=== PATIENT | male | born 1970 | race Caucasian/White ===

== ENCOUNTER 2018-07-29 06:08 | Day surgery (SDC) | payer BC, SELFPAY ==
[2018-07-29 06:22] VITALS: BP 121/74; PULSE 62; RESP 16; TEMP 36.6; O2SAT 94
[2018-07-29] MEDS: Lactated Ringers 1,000 ML 30 ML IV ×2 (07:02→08:28)
--- NOTE | 2018-07-29 07:36 | HPE_ITS ---
Date of service: 07/29/18 Time of Service: 07:33 Assessment and Plan (1) Lipoma of arm: Current visit: Yes Status: Acute Problem details: Plan for removal of lipoma of the left arm under MAC. Reviewed the procedure with Mr. Gaytan, and discussed the risks of the procedure with Mr. Gaytan. All his questions were answered to his satisfaction. History of Present Illness Chief Complaint: Lipoma of the left arm Narrative: 48 y/o gentleman referred for lipoma of the left arm. This has been present for years, and increasing in size. It starting to interfere with ADL's. He would like this removed Review of Systems Constitutional Denies body ache(s), Denies chills, Denies fever(s), Denies headache(s), Denies weakness and Denies weight loss Eyes Patient Denies loss of vision ENT Denies headache(s), Denies throat swelling and Denies tongue swelling Cardiovascular Denies chest pain, Denies chest pain at rest, Denies chest pain with activity, Denies diaphoresis, Denies syncope, Denies irregular heart rhythm, Denies palpitations and Denies dyspnea on exertion Respiratory Denies chest congestion, Denies cough, Denies dyspnea on exertion and Denies wheezing Musculoskeletal Denies back pain, Denies myalgias, Denies arthralgias, Denies joint swelling and Denies limited range of motion Integumentary/Breasts Reports lesions (lipoma left arm) Neurologic Denies behavioral changes, Denies syncope, Denies headache(s), Denies lack of coordination, Denies loss of vision, Denies convulsions and Denies weakness Psychiatric Denies abnormal sleep pattern, Denies behavioral changes, Denies difficulty concentrating and Denies mood swings Endocrine Denies palpitations Hematologic/Lymphatic Denies easy bleeding and Denies easy bruising Allergic/Immunologic Denies GI upset with certain foods, Denies throat swelling, Denies tongue swelling and Denies wheezing [facility]LY [facility] Medical History MAXI (obstructive sleep apnea) (Chronic) Social History Smoking/Tobacco Use Status: Never Surgical History Biopsy, Soft Tissue (09/25/17) Excision, Lipoma (09/25/17) Repair of umbilical hernia Rotator Cuff Repair Meds Home Medications Medication Instructions Recorded Confirmed Type ibuprofen [Advil] 200 - 800 mg PO PRN PRN 12/06/15 07/29/18 History Allergies Allergy/AdvReac Type Severity Reaction Status Date / Time No Known Allergies Allergy Unverified 07/29/18 06:20 Exam Const General: cooperative, comfortable and no acute distress Nutritional Appearance: well nourished Orientation: alert and oriented x3 Chest Chest: normal inspection of the chest Resp Effort & Inspection: normal respiratory effort, able to speak in complete sentences, no cough and not labored Cardio Rate: regular rate Rhythm: regular rhythm Skin Lesions: lesion noted (left arm) Rashes: no rashes Hair: normal Psych Appearance: grossly normal and well kempt Mental Status: mental status grossly normal Mood: congruent mood Affect: normal affect Attitude: cooperative Insight: insight good Judgment: judgment good
--- NOTE | 2018-07-29 08:19 | SOFT_PTH ---
PATIENT: Carlos Gaytan LOC: [facility] U#:[id number] AGE/SX: 48/M ROOM: RE07/29/[address]: dEuardo Virgen DO : 1970 BED: DIS: 07/29/2018 SPEC #: [id number] RECD: 07/29/18 12:09 STATUS: EVA LEVY #: [id number] JAMIA: 07/29/18 08:[address]: Eduardo Virgen DEPT: Surgical Specimen RECD BY: Lyndsay Persadu ENTERED: 07/29/18 12:11 SP TYPE: SOFT OTHR DR: Juliette Licona Tissues: 1 - SOFT TISSUE [facility] Procedures: GROSS AND MICRO LEVEL 3 Comments: [id number]
[2018-07-29] MEDS: Lidocaine 1% Pres-Free 5 ML VIAL 15 ML (08:27)
[2018-07-29] MEDS: Lidocaine 1% Pres-Free 5 ML VIAL (08:27)
[2018-07-29 08:47] VITALS: BP 157/82; PULSE 62; RESP 15; TEMP 36.6; O2SAT 95
[2018-07-29 08:52] VITALS: BP 164/87; PULSE 59; RESP 14; TEMP 36.6; O2SAT 96
[2018-07-29 08:57] VITALS: BP 152/79; PULSE 60; RESP 13; TEMP 36.6; O2SAT 97
[2018-07-29 09:12] VITALS: BP 132/88; PULSE 53; RESP 14; TEMP 36.3; O2SAT 97
--- NOTE | 2018-07-29 09:18 | PDOC.DSDIS_ITS ---
Discharge Plan Discharge Details Reason For Visit: LIPOMA (L) ARM Attending Provider: Eduardo Virgen Primary Care Provider: Juliette Licona Disposition Patient Disposition: HOME Condition: Good Home Meds and New Rx's Prescriptions: New acetaminophen [Tylenol] 325 mg Tablet 650 mg PO Q4H PRN PRNQty: 30 RF: 0 Continue ibuprofen [Advil] 200 MG tablet 200 - 800 mg PO PRN PRNRF: 0 Discharge Instructions Instructions: Care For Your Absorbable Stitches (DC), Lipoma (GEN) Additional Instructions: Dr. Eduardo Virgen Post-Operative Discharge Instructions 1. Because there will be medication in your system for the next 24 hours, you may feel a little sleepy. Your coordination will be affected. Therefore: * Do not drive or operate dangerous equipment for 24 hours. * Do not drink alcohol beverages for 24 hours (not even beer). * Plan to go home and rest for the day. Restrictions: * Do not lift over 20lbs for 1 weeks with the left arm. * No baths, you can shower. Let warm soapy water run over wound, then pat wound dry. Activity: * The day of surgery spend most of the day resting in a comfortable bed or recliner. 2-3 times during the day get up and walk around the house. * The day after surgery, or after your discharge, walk at least 3 times a day and spend increasing amounts of time walking and sitting up. If you are tired rest, but keep moving as able. Diet: * Resume home diet as tolerated. * Start with a light diet, your appetite will improve with time. * Drink at least 4-6 glasses of water per day to keep hydrated. Wound Care: * Wound is covered with glue, you can shower in 24 hours, glue will wear off in time * You may cover the wound with a dry sterile dressing to keep clothing from rubbing against the wound. Call for appointment . Continue all your regular medications unless directed otherwise. Call the office or the Hospital Insulation Foreman , If you have: * Pain not controlled with pain medication. * Nausea and vomiting. * Temperature greater than 101 degrees Fahrenheit. * Drainage from your wound that soaks through your dressing. *No more than 4000 milligrams of Tylenol in 24 hours. Narcotic pain medication can be constipating, if you have not had a bowel movement within 3 days use a laxative, I recommend Milk of Magnesia (MOM) 1oz. every 6 hrs until you have a bowel movement. I understand the above instructions and have no questions. _ Signature of Patient or Responsible Adult Escort Date/Time _ Name of Responsible Adult Escort _ Signature of Nurse Date/Time Revised 03/19/11 Referrals: Eduardo Virgen DO [ [facility] STAFF PHYSICIAN] - 08/11/18 9:15 am (Follow up after excision of lipoma of the left arm) Print Language: Italian Activity:: Activity as Tolerated Remove Dressings/Wound Care:: 24 hours Shower/Bathe:: Cover Diet:: Normal Diet Discharge Orders Discharge Orders: Discharge Order (Routine); Ordered 07/29/18 Ordered By: Eduardo Virgen Discharge Data Discharge Date/Time-TO BE ENTERED AT DEPARTURE: 07/29/18 09:15 DS: Diagnosis Discharge Diagnosis (1) Lipoma of arm: Status: Acute Problem details: Plan for removal of lipoma of the left arm under MAC. Reviewed the procedure with Mr. Gaytan, and discussed the risks of the procedure with Christoph Lucila. All his questions were answered to his satisfaction.
[2018-07-29] MEDS: Lactated Ringers 1,000 ML 150 ML IV (09:23)
--- NOTE | 2018-07-29 09:25 | W.PM.OP ---
Date of service: 07/29/18 Operative Note Date of procedure: 07/29/18 Pre-op diagnosis: Lipoma left arm Post-op diagnosis: same Procedure: Excision of lipoma of the left arm Surgeon: Eduardo Virgen Anesthesia: other (General anesthesia via LMA by Glenn Patricia CRNA ASA 3 Mallampati class II) Estimated blood loss (mL): 5.0 Pathology: none sent (Lipoma of the left arm) Complications: None Patient was transported to: PACU Patient's condition: stable Indications: 48-year-old male with lipoma in the left arm. This is been present for many years, and has been increasing in size. It is now starting to interfere with his activities of daily living. He is asked that this be removed. The risks and benefits of the procedure have been discussed with him. All his questions been answered to his satisfaction. Findings: Lipoma of the left arm Procedure Description: Patient was brought to the preanesthesia staging area, identification confirmed, consent signed, and site marking placed. He was then brought to the operating room and positioned in the right lateral decubitus consent signed. An appropriate timeout was taken reviewing the patient's identification, allergies, medications, and procedures. Sedation was titrated for effect by the SOLID GLASS ROD DOWEL MACHINE OPERATOR, the patient could not protect his airway, and was converted to general via LMA. Once the patient was adequately sedated, local was infiltrated over the center of the left arm lesion. An elliptical incision measuring 4 cm in transverse and 1 cm longitudinal was made over the lesion. This was carried down to the subcutaneous tissue, to the capsule of the lipoma. Blunt dissection was then used to circumferentially dissect out the lipoma. Once it was further circumferentially freed up, it was removed and passed off for pathology. The wound was then copiously irrigated. Hemostasis was obtained by cautery. The wound was then closed in layers. The subcutaneous layer was approximated using 3-0 Vicryl sutures in inverted fashion. Skin was closed using a running suture of 4-0 Vicryl. Skin glue was applied over the wound. A dry sterile dressing was then applied over this. There were no complications during the case. The patient tolerated procedure well. He was brought to the postanesthesia care unit in good condition, all counts reported as correct ?2.
[2018-07-29 10:05] VITALS: BP 109/74; PULSE 61; RESP 16; TEMP 36.5; O2SAT 94
== END 2018-07-29 10:25 | disposition home or self-care (01) ==
PROVIDERS: Visit Provider Surgery
PROC: (CPT 11404; principal; 2018-07-29 07:30)
DX: D17.1 Benign lipomatous neoplasm of skin and subcutaneous tissue of trunk (principal)
CPT/HCPCS: 11404; NC; 88304; J2250; J3010

== ENCOUNTER 2018-10-06 08:27 | Outpatient (CLI) | payer BC, SELFPAY ==
--- NOTE | 2018-10-06 08:30 | SATEXT_ITS ---
Assessment: Mr. Gaytan presents for nutritional counseling for weight management nutrition therapy. He reports that he has been steadily gaining weight over the past couple of years. He has a shoulder injury and had to stop lifting weights and thus lost all motivation to other physical activity and eat well etc. He rarely eats breakfast, he has a sandwich and chips for lunch, he has a typical dinner, he snacks on chips. He drinks regular soda and Gatorade. He also drinks regular lemonade. He is 67 [address]. He states he would like to lose 50 lbs. He verbalizes that he is ready to make changes. Nutritional Diagnosis: Class 2 obesity related to excess energy intake and physical inactivity as evidenced by BMI of 37.5 kg/m2. Intervention: We discussed action planning for his big goal of losing weight. We reviewed the DASH eating plan to outline how much and what foods Mr. Gaytan needs to eat during the day. To that end, his first action plan is to eat 11 fruits and vegetables per day. We discussed not focusing on not eating chips and other junk food, but focusing on what he needs to eat. His second action plan is to eliminated sugary drinks completely. Mr. Gaytan states he will drink water. He does admit, he would like to but a non-caloric flavor pack in his water occasionally, which I said is acceptable. Monitoring and Evaluation: 1. Mr. Gaytan will return in 2 weeks for follow up. Will monitor his progress on his action plans. 2. Will evaluate his nutrition care plan based on his progress with action plans above. Will adjust as needed. Thank you for the referral.
== END 2018-10-06 08:47 ==
PROVIDERS: Visit Provider Dietitian, Registered
DX: E66.8 Other obesity (principal); Z68.37 Body mass index [BMI] 37.0-37.9, adult
CPT/HCPCS: 97802

== ENCOUNTER 2018-10-08 12:16 | Day surgery (SDC) | payer BC, SELFPAY ==
[2018-10-08 12:44] VITALS: BP 129/95; PULSE 73; RESP 16; TEMP 36.2; O2SAT 95
[2018-10-08] MEDS: Lactated Ringers 1,000 ML 30 ML IV (13:00)
--- NOTE | 2018-10-08 14:11 | COLE_ITS ---
Date of service: 10/08/18 Time of Service: 14:09 Colonoscopy Report Date of procedure: 10/08/18 Pre-op diagnosis general: Colorectal cancer screen Post-op diagnosis procedure note: other Procedure: Colonoscopy to the cecum with biopsy by cold forceps Surgeon: Eduardo Virgen Anesthesia proc note operative: MAC (Glenn Tadeo, DIRECTOR CORPORATE SALES: ASA 3 Mallampati class II) Estimated blood loss (mL): 1 Pathology: other (Ascending colon polyp) Complications: None Disposition: same day Indications: 48-year-old gentleman presenting for colorectal cancer screening by colonoscopy. He has been asymptomatic. He has no family history of colorectal cancer. The colonoscopy procedure has been reviewed with him, and the risks discussed with him. All his questions been answered to his satisfaction. Consents been obtained to proceed with colonoscopy. Prep: Miralax/Dulcolax (Prep quality excellent) Procedure Start Time: 14:14 Procedure End Time: 14:29 Retraction Time: 9 Findings: In examining the colon from cecum to anus, a single polyp was found in the ascending colon which was less than 1 cm in greatest diameter and removed by cold biopsy forceps. In the remainder of the colon the patient was noted to have some mild sigmoid diverticulosis, but no other abnormalities were noted of the colon. No abnormalities were noted of the rectum or anorectal junction Procedure Description: The patient was seen in the day surgery waiting area. His identification was confirmed, and procedure checked. He was then brought to the procedure room. Monitoring for telemetry, blood pressure, oxygen saturation, and end tidal CO2 monitoring were applied. An appropriate time out was performed to confirm, identification, allergies, medication, procedure, was performed. Sedation was titrated for affect by the DIRECTOR CORPORATE SALES. Once adequate sedation was achieved, I performed a inspection of the external perineum, and a digitial rectal examination. No significant external abnormalities were noted. On digital rectal examination, there was no blood, no masses, good rectal tone, and a normal prostate. I advanced the colonoscope from the anus to the cecum under direct visualization. The cecum was identified by the ileal-cecal valve, and the appendiceal orifice. The scope was then withdrawn in circumferential manner from the cecum to the rectum. A single polyp was identified in the ascending colon which was less than 1 cm in greatest diameter and removed by cold biopsy forceps. In the remainder of the colon, some mild sigmoid diverticulosis was noted, but no other abnormalities the colon were seen. The scope was then withdrawn into the rectum, and retroflexed. No abnormalities were noted of the rectum or anorectal junction. The scope was then withdrawn, terminating the procedure. There were no complications during the procedure, and the patient tolerated the procedure well. He was returned to the day surgery recovery area in good condition. Plan: We will await pathology before making further recommendations
--- NOTE | 2018-10-08 14:24 | BOWEL_PTH ---
PATIENT: Carlos Gaytan LOC: [facility] U#:[id number] AGE/SX: 48/M ROOM: RE10/08/[address]: Eduardo Virgen DO : 1970 BED: DIS: 10/08/2018 SPEC #: [id number] RECD: 10/08/18 15:03 STATUS: EVA REBrandan #: [id number] JAMIA: 10/08/18 14:[address]: Eduardo Virgen DEPT: Surgical Specimen RECD BY: Lyndsay Persaud ENTERED: 10/08/18 15:03 SP TYPE: Bowel OTHR DR: Juliette Licona Tissues: 1 - BIOPSY BOWEL Procedures: GROSS AND MICRO LEVEL 4 Comments: [id number]
--- NOTE | 2018-10-08 14:51 | W.PM.DSUDISC ---
Discharge Plan Disposition Patient Disposition: HOME Condition: Good Discharge Details Reason For Visit: SCREENING Attending Provider: Eduardo Virgen Primary Care Provider: Juliette Licona Home Meds and New Rx's Prescriptions: Continue ibuprofen [Advil] 200 MG tablet 200 - 800 mg PO PRN PRNRF: 0 acetaminophen [Tylenol] 325 mg Tablet 650 mg PO Q4H PRN PRNQty: 30 RF: 0 Discharge Instructions Instructions: Colonoscopy (DC) Activity:: Activity as Tolerated Diet:: As Tolerated Discharge Orders Discharge Orders: Discharge Order (Routine); Ordered 10/08/18 Ordered By: Eduardo Virgen DS: Diagnosis Discharge Diagnosis (1) Encounter for colorectal cancer screening: Status: Acute Asessment and Plan: Screening colonoscopy performed: Colonoscopy Report Date of procedure: 10/08/18 Pre-op diagnosis general: Colorectal cancer screen Post-op diagnosis procedure note: other( 1. ascending colon polyp 2. Mild sigmoid diverticulosis) Procedure: Colonoscopy to the cecum with biopsy by cold forceps Surgeon: Eduardo Virgen Anesthesia proc note operative: MAC (Glenn Tadeo, AIR ANTISUBMARINE OFFICER: ASA 3 Mallampati class II) Estimated blood loss (mL): 1 Pathology: other (Ascending colon polyp) Complications: None Disposition: same day Indications: 48-year-old gentleman presenting for colorectal cancer screening by colonoscopy. He has been asymptomatic. He has no family history of colorectal cancer. The colonoscopy procedure has been reviewed with him, and the risks discussed with him. All his questions been answered to his satisfaction. Consents been obtained to proceed with colonoscopy. Prep: Miralax/Dulcolax (Prep quality excellent) Procedure Start Time: 14:14 Procedure End Time: 14:29 Retraction Time: 9 Findings: In examining the colon from cecum to anus, a single polyp was found in the ascending colon which was less than 1 cm in greatest diameter and removed by cold biopsy forceps. In the remainder of the colon the patient was noted to have some mild sigmoid diverticulosis, but no other abnormalities were noted of the colon. No abnormalities were noted of the rectum or anorectal junction Procedure Description: The patient was seen in the day surgery waiting area. His identification was confirmed, and procedure checked. He was then brought to the procedure room. Monitoring for telemetry, blood pressure, oxygen saturation, and end tidal CO2 monitoring were applied. An appropriate time out was performed to confirm, identification, allergies, medication, procedure, was performed. Sedation was titrated for affect by the AIR ANTISUBMARINE OFFICER. Once adequate sedation was achieved, I performed a inspection of the external perineum, and a digitial rectal examination. No significant external abnormalities were noted. On digital rectal examination, there was no blood, no masses, good rectal tone, and a normal prostate. I advanced the colonoscope from the anus to the cecum under direct visualization. The cecum was identified by the ileal-cecal valve, and the appendiceal orifice. The scope was then withdrawn in circumferential manner from the cecum to the rectum. A single polyp was identified in the ascending colon which was less than 1 cm in greatest diameter and removed by cold biopsy forceps. In the remainder of the colon, some mild sigmoid diverticulosis was noted, but no other abnormalities the colon were seen. The scope was then withdrawn into the rectum, and retroflexed. No abnormalities were noted of the rectum or anorectal junction. The scope was then withdrawn, terminating the procedure. There were no complications during the procedure, and the patient tolerated the procedure well. He was returned to the day surgery recovery area in good condition. Plan: We will await pathology before making further recommendations
[2018-10-08 15:05] VITALS: BP 146/97; PULSE 65; RESP 16; TEMP 36.4; O2SAT 94
== END 2018-10-08 15:35 | disposition home or self-care (01) ==
PROVIDERS: Visit Provider Surgery
PROC: 0DJD8ZZ Inspection of Lower Intestinal Tract, Via Natural or Artificial Opening Endoscopic (ICD-10-PCS; CPT 45378; principal; 2018-10-08 13:45)
DX: Z12.11 Encounter for screening for malignant neoplasm of colon (principal); D12.2 Benign neoplasm of ascending colon; K57.30 Diverticulosis of large intestine without perforation or abscess without bleeding; G47.33 Obstructive sleep apnea (adult) (pediatric)
CPT/HCPCS: 45380; 88305; J2250; J3010

== ENCOUNTER 2018-10-20 08:48 | Outpatient (CLI) | payer BC, SELFPAY ==
--- NOTE | 2018-10-20 08:30 | NS.NUTBLAN_ITS ---
October 20, 2018 0830 h returns for follow up nutritional counseling for weight management. He reports that he has almost completely cut out sugar sweetened beverages and he has been counting calories. He describes using several different methods at this point for his weight management. Encouraged Mr. Gaytan to pick one method of all of the healthy ways to manage weight. We discussed that all plans come down to eating many vegetables and fruits and limiting processed carbohydrates and choosing whole grains and even eating those in moderate portions. Mr. Gaytan stated he is going to use his Fit Bit to track his activity and caloric intake and continue his focus on eating healthy foods. He will follow up with me again in two weeks. His weight today is down 9.3 lbs to 244.8 lbs. He is 67 which gives him a BMI of 35.9 kg/m2. Total time spent face to face with patient was 22 minutes.
== END 2018-10-20 09:08 ==
PROVIDERS: Visit Provider Dietitian, Registered
DX: E66.9 Obesity, unspecified (principal); Z68.37 Body mass index [BMI] 37.0-37.9, adult; Z71.3 Dietary counseling and surveillance
CPT/HCPCS: 97803

== ENCOUNTER 2019-05-12 18:54 | Emergency (ER) | payer BC, SELFPAY ==
[2019-05-12 18:58] VITALS: BP 121/84; PULSE 65; RESP 18; TEMP 36.6; O2SAT 96
--- NOTE | 2019-05-12 19:54 | ED.GENADUL_ITS ---
Discharge Plan Disposition Patient Disposition: HOME Condition: Stable Discharge Details Chief Complaint: RashLesion Clinical Impression: Bleeding skin mole Primary Care Provider: Dottie Oliva ED Provider: Michelle Morales Home Meds and New Rx's Prescriptions: Continued ibuprofen [Advil] 200 MG tablet 200 - 800 mg PO PRN PRNRF: 0 acetaminophen [Tylenol] 325 mg Tablet 650 mg PO Q4H PRN PRNQty: 30 RF: 0 Discharge Instructions Instructions: Common Wart (ED), Atypical Mole (ED) Additional Instructions: It is unclear what type of skin lesion you have at this time. It is possible that it could be a common wart. Follow-up with your primary care doctor for reevaluation and for referral to dermatology if needed. Return to the emergency department if you develop any worsening or new concerning symptoms. Discharge Data Discharge Date/Time-TO BE ENTERED AT DEPARTURE: 05/12/19 19:59 Discharge Physician: Michelle Morales Medical Decision Making 49-year-old male presents with bleeding skin lesion to his left elbow that started today after he bumped it. States he has had lesion for the last several months and believes anytime with trauma. Denies any fever, known tick bites, bull's-eye rash. States he has used several wart treatments without relief. Vitals within normal limits. Patient appears nontoxic. There is a 1 x 1 cm round raised skin colored lesion noted to left elbow with surface oozing blood. There is no surrounding cellulitis, abscess or trauma noted. Lesion appears regular and circular and does not appear consistent with melanoma. Silver nitrate was applied and bleeding stopped. A nonadherent dressing was placed over area. Patient was instructed to follow-up with his primary care doctor for reevaluation and referral to dermatology if symptoms do not improve or worsen for possible biopsy or excision. Instructed to return to the ER with any worsening or new concerning symptoms. HPI General Mode of arrival: ambulatory . Date/Time Provider Initiated Documentation: 05/12/19 19:05 . Limitations to Documentation: no limitations . Information obtained by: patient . HPI Narrative: Pt is a 49yo M who presents for bleeding lesion on his L elbow that started bleeding 2 hours ago. Pt states he has the lesion for the past several months but states he has had episodes of bleeding with trauma to the area. Pt states he thinks the lesion is a wart and has used wart remover twice but without any improvement. Pt denies fever, insect bites, new soaps, lotions, detergents or other exposures. He states tonight he hit his elbow on something and it has not stopped bleeding for the past 2 hours. Denies dizziness, weakness, shortness of breath, chest pain. Related Data Home Medications Medication Instructions Recorded Confirmed ibuprofen [Advil] 200 - 800 mg PO PRN PRN 12/06/15 05/12/19 acetaminophen [Tylenol] 650 mg PO Q4H PRN PRN #30 tab 07/29/18 05/12/19 Previous Rx's Medication Instructions Recorded acetaminophen [Tylenol] 650 mg PO Q4H PRN PRN #30 tab 07/29/18 Allergies Allergy/AdvReac Type Severity Reaction Status Date / Time No Known Allergies Allergy Verified 05/12/19 19:06 General Stated Complaint: RashLesion EVER: 4 PFSH Medical History Frequent headaches (Acute) MAXI (obstructive sleep apnea) (Chronic) Surgical History History of excision of lesion (Acute 07/29/18) H/O colonoscopy (Resolved) Biopsy, Soft Tissue (09/25/17) Excision, Lipoma (09/25/17) Repair of umbilical hernia Rotator Cuff Repair Social History Smoking/Tobacco Use Status: Never Alcohol Intake: current Alcohol Intake frequency: a few times a week Drug use: Never Substance use type: does not use Adopted: Yes Household members: spouse and children Do you feel safe at home: Yes Do you feel safe in your relationship?: Yes Exam Const General: cooperative, healthy appearing and no acute distress HENMT Head: normal to inspection Mouth: oral mucosae normal Eyes General: appearance normal, both eyes and all related structures Neck Neck: normal visual inspection Resp Effort & Inspection: normal respiratory effort and able to speak in complete sentences Cardio Rate: regular rate Skin General skin exam: no rashes or lesions noted Neuro General: alert, awake and oriented x3 Motor: muscle tone normal throughout Extrem General: normal to inspection and full ROM Psych Appearance: grossly normal Affect: normal affect Course Vital Signs Temperature 97.9 F 05/12/19 18:58 Pulse 65 05/12/19 18:58 Respiratory Rate 18 05/12/19 18:58 Blood Pressure 121/84 05/12/19 18:58 Pulse Oximetry 96 05/12/19 18:58 Temperature 97.9 F 05/12/19 18:58 Temperature Source Skin 05/12/19 18:58 Pulse 65 05/12/19 18:58 Respiratory Rate 18 05/12/19 18:58 Respiratory Effort Non-Labored 05/12/19 19:04 Blood Pressure 121/84 05/12/19 18:58 Blood Pressure Position Sitting 05/12/19 18:58 Pulse Oximetry 96 05/12/19 18:58 Pain Level 0 05/12/19 18:58
[2019-05-12 19:59] VITALS: BP 121/84; PULSE 65; RESP 18; TEMP 36.6; O2SAT 96
== END 2019-05-12 19:59 | disposition home or self-care (01) ==
PROVIDERS: Emergency Provider Physician Assistant; PCP Family Medicine
DX: S51.012A Laceration without foreign body of left elbow, initial encounter (principal); D22.9 Melanocytic nevi, unspecified; X58.XXXA Exposure to other specified factors, initial encounter
CPT/HCPCS: 99282

== ENCOUNTER 2019-12-24 11:39 | Emergency (ER) | payer BC, SELFPAY ==
[2019-12-24 11:44] VITALS: BP 119/84; PULSE 64; RESP 16; TEMP 36.1; O2SAT 95
--- NOTE | 2019-12-24 12:04 | ED.GENADUL_ITS ---
Discharge Plan Disposition Patient Disposition: HOME Condition: Good Discharge Details Chief Complaint: RespSymp Clinical Impression: Flu-like symptoms Primary Care Provider: Dottie Oliva ED Provider: Mari Haines Home Meds and New Rx's Prescriptions: Continued ibuprofen [Advil] 200 MG tablet 200 - 800 mg PO PRN PRNRF: 0 acetaminophen [Tylenol] 325 mg Tablet 650 mg PO Q4H PRN PRNQty: 30 RF: 0 Discharge Instructions Instructions: Influenza (ED) Additional Instructions: Your symptoms are most consistent with influenza. As has been 1 week and her symptoms are improving, there is no medical management available at this time aside from symptom support. If you develop fever/chills, difficulty breathing, shortness of breath, inability stay hydrated or other new/worsening symptoms seek care urgently once again. Otherwise, please encourage water intake and follow-up with your primary care if not improved next week. Referrals: Dottie Oliva [Primary Care Provider] - Discharge Data Discharge Date/Time-TO BE ENTERED AT DEPARTURE: 12/24/19 13:27 Medical Decision Making Patient is a 49-year-old male presented with chief complaint of URI. Reports that 1 week ago he developed sudden onset of cough, fevers, chills, body aches, bilateral ear pain. He reports that symptoms have vastly improved he continues to have fatigue. States that his and children have had similar illness. Patient is seeking care today really just for the remote fatigue as his upcoming busy schedule. Patient's exam is in reassuring. He has no evidence of progressing disease and sounds like he has been improving. At this time, I advised his most likely illness is influenza based on his symptoms but that at this point there is no treatment options available. We did discuss hydration as patient drinks little fluids throughout the course the day. We discussed of the current home regimen to help manage symptoms. He was given return precautions. I have asked that he follow-up with primary care in 1 week if not improving. All of his questions or concerns were addressed and is in agreement this plan. HPI General Mode of arrival: ambulatory . Date/Time Provider Initiated Documentation: 12/24/19 12:03 . Limitations to Documentation: no limitations . Information obtained by: patient, family and RN notes reviewed . History of Present Illness 49 year old M presents to the emergency department with the chief complaint of Flulike illness, described as moderate, Patient started experiencing this week(s) (1) and it has been constant (Reports 100% improved still feeling fatigued). No relieving factors improve symptom(s), No exacerbating factors reported . Patient notes no other symptoms.. Patient did receive the following treatments prior to arrival, none Related Data Home Medications Medication Instructions Recorded Confirmed ibuprofen [Advil] 200 - 800 mg PO PRN PRN 12/06/15 12/24/19 acetaminophen [Tylenol] 650 mg PO Q4H PRN PRN #30 tab 07/29/18 12/24/19 Previous Rx's Medication Instructions Recorded acetaminophen [Tylenol] 650 mg PO Q4H PRN PRN #30 tab 07/29/18 Allergies Allergy/AdvReac Type Severity Reaction Status Date / Time No Known Allergies Allergy Verified 12/24/19 11:47 General Stated Complaint: RespSymp EVER: 3 Review of Systems Constitutional Constitutional: Reports as per HPI and Denies headache(s) Eyes Eyes: Reports as per HPI, Denies eye discharge and Denies irritation ENT Ears, Nose, Mouth, and Throat: Reports as per HPI and Denies headache(s) Cardiovascular Cardiovascular: Reports as per HPI, Denies chest pain and Denies dyspnea Respiratory Respiratory: Reports as per HPI and Denies dyspnea Gastrointestinal Gastrointestinal: Reports as per HPI, Denies abdominal pain, Denies change in bowel habits, Denies nausea and Denies vomiting Integumentary/Breasts Skin/Breast: Reports as per HPI and Denies rash Neurologic Neurologic: Reports as per HPI and Denies headache(s) [facility] Medical History Frequent headaches (Acute) MAXI (obstructive sleep apnea) (Chronic) Social History Smoking/Tobacco Use Status: Never Alcohol Intake: never Drug use: Never Substance use type: does not use Adopted: Yes Household members: spouse and children Do you feel safe at home: Yes Do you feel safe in your relationship?: Yes Exam Const General: cooperative, healthy appearing, comfortable, no acute distress, well developed and well groomed Nutritional Appearance: average body habitus and well nourished Orientation: alert and awake [facility] Head: normal to inspection, normocephalic and atraumatic Ears: hearing grossly normal bilaterally, external ears normal and TM's normal bilaterally General nose exam: external nose normal and nares normal Face and sinus: normal facial exam, sinuses nontender and face symmetric Mouth: oral mucosae normal, lip normal, tongue normal, oropharynx normal and moist mucous membranes Teeth and gingiva: dentition normal Throat: posterior oropharynx normal, tonsils normal and uvula midline Eyes General: appearance normal, both eyes and all related structures Neck Neck: normal visual inspection, full ROM, no lymphadenopathy and no meningeal signs Resp Effort & Inspection: normal respiratory effort, able to speak in complete sentences and no respiratory distress Auscultation: clear to auscultation bilaterally, no rales, no rhonchi and no wheezes Cardio Rate: regular rate Rhythm: regular rhythm Heart Sounds: S1 normal and S2 normal Skin General skin exam: no rashes or lesions noted Neuro General: alert and awake Cognition: normal cognition Speech: speech normal Gait: normal gait Psych Appearance: grossly normal and well kempt Mental Status: mental status grossly normal Speech and Movement: speech and movement normal Course Vital Signs Vital signs: Vital Signs Temperature 36.1 C L 12/24/19 11:44 Pulse 64 12/24/19 11:44 Respiratory Rate 16 12/24/19 11:44 Blood Pressure 119/84 12/24/19 11:44 Pulse Oximetry 95 12/24/19 11:44 Temperature 36.1 C L 12/24/19 11:44 Temperature Source Skin 12/24/19 11:44 Pulse 64 12/24/19 11:44 Respiratory Rate 16 12/24/19 11:44 Respiratory Effort Non-Labored 12/24/19 11:47 Blood Pressure 119/84 12/24/19 11:44 Blood Pressure Position Sitting 12/24/19 11:44 Pulse Oximetry 95 12/24/19 11:44 Oxygen Delivery Method Room Air 12/24/19 11:44 Oxygen Flow Rate 0 12/24/19 11:44 Pain Level 0 12/24/19 11:44
== END 2019-12-24 13:27 | disposition home or self-care (01) ==
PROVIDERS: Emergency Provider Physician Assistant; PCP Family Medicine
DX: R50.9 Fever, unspecified (principal); J11.1 Influenza due to unidentified influenza virus with other respiratory manifestations
CPT/HCPCS: 99282; 99283

== ENCOUNTER 2022-07-10 18:38 | Outpatient (REF) | payer BC, SELFPAY ==
[2022-07-10 16:35] LABS: Anion Gap 9.4 mmol/L (3-11); BUN 16 mg/dL (7-18); CO2 25.6 mmol/L (21.0-32.0); CREATININE 0.8 mg/dL (0.70-1.30); Calcium 8.7 mg/dL (8.5-10.1); Chloride 105 mmol/L (98-107); Glucose 93 mg/dL (74-106); Sodium 140 mmol/L (136-145)
[2022-07-10 22:34] LABS: PSA, Screening 7.9 ng/mL (<=3.5)
== END 2022-07-10 18:39 | disposition home or self-care (01) ==
LOC: NCHCN 18:38
PROVIDERS: PCP Family Medicine; Visit Provider Family Medicine
DX: Z00.00 Encounter for general adult medical examination without abnormal findings (principal); R97.20 Elevated prostate specific antigen [PSA]; E66.9 Obesity, unspecified; Z12.5 Encounter for screening for malignant neoplasm of prostate
CPT/HCPCS: 80048; 84153

== ENCOUNTER → 2022-08-10 00:51 | Outpatient (CLI) | payer BC, SELFPAY ==
--- NOTE | 2022-08-06 13:43 | W.PM.OP ---
Date of service: 08/06/22 Time of Service: 13:43 Operative Note Operative Note DATE OF PROCEDURE: 08/06/22 PRE-OP DIAGNOSIS: Elevated PSA POST-OP DIAGNOSIS: same PROCEDURE: Transrectal ultrasound SURGEON: Alcides Isabel Refer to Anesthesia Record COMPLICATIONS: Other (procedure aborted as we were unable to visualize needle bevel along biopsy guide)
--- NOTE | 2022-08-10 08:00 | DI.US_ITS ---
Exam(s) US PROSTATE BIOPSY EXAM: US PROSTATE BIOPSY CLINICAL HISTORY: elevated PSA/enlarged,hematospermia,r97.20,r36.1,ultrasound guided bx TECHNIQUE: Ultrasound performed using standard protocol. COMPARISON: US US PROSTATE BIOPSY from 08/06/2022 FINDINGS: Fluoroscopy was provided for ultrasound-guided prostate biopsy performed by the urologist. The radio logist was not present for this procedure. IMPRESSION: DATA REPOSITORY:
--- NOTE | 2022-08-10 15:00 | PROST_PTH ---
PATIENT: Carlos Gaytan LOC: [facility] U#:[id number] AGE/SX: 55/M ROOM: RE08/10/[address]: Michelle Mathews DNP : 1970 BED: DIS: SPEC #: [id number] RECD: 08/10/22 17:21 STATUS: EVA LEVY #: [id number] JAMIA: 08/10/22 15:[address]: Michelle Mathews DEPT: Surgical Specimen RECD BY: Lyndsay Persaud ENTERED: 08/10/22 17:23 SP TYPE: PROST OTHR DR: Dottie Oliva Tissues: 1 - PROSTATE NEEDLE BIOPSY 2 - PROSTATE NEEDLE BIOPSY 3 - PROSTATE NEEDLE BIOPSY 4 - PROSTATE NEEDLE BIOPSY 5 - PROSTATE NEEDLE BIOPSY 6 - PROSTATE NEEDLE BIOPSY 7 - PROSTATE NEEDLE BIOPSY 8 - PROSTATE NEEDLE BIOPSY 9 - PROSTATE NEEDLE BIOPSY 10 - PROSTATE NEEDLE BIOPSY 11 - PROSTATE NEEDLE BIOPSY 12 - PROSTATE NEEDLE BIOPSY Procedures: GROSS AND MICRO LEVEL 4 Comments: [id number]
--- NOTE | 2022-08-10 16:11 | W.PM.OP ---
Date of service: 08/10/22 Time of Service: 16:11 Operative Note Operative Note DATE OF PROCEDURE: 08/06/22 PRE-OP DIAGNOSIS: Elevated PSA POST-OP DIAGNOSIS: same PROCEDURE: Transrectal ultrasound guided biopsy of the prostate SURGEON: Alcides Isabel ANESTHESIA TYPE: Local By Surgeon Refer to Anesthesia Record ESTIMATED BLOOD LOSS: 11 PATHOLOGY: other (Laterally directed biopsies of the prostate) COMPLICATIONS: None Patient was transported to: no change Patient's condition: stable Indications: This is a 52-year-old gentleman who has a history of an elevated PSA (7.9 ng/mL). He has also been seeing blood in the ejaculate. He has a normal digital rectal exam. He presents for prostate biopsy. Findings: Prostate volume 135 cc No hypoechoic areas in the peripheral zone Enlarged and asymmetric transition zone with the left side larger than the right Procedure Description: The patient was given a pre procedural antibiotic and mechanical bowel prep. He was brought to the radiology suite on 08/10/2022. Transrectal ultrasound imaging of the prostate was performed using both transverse and the lateral planes. The prostate was diffusely enlarged with a calculated volume of 135 cc. The transition zone was enlarged and compressed the peripheral zone. No specific hypoechoic areas were seen on the peripheral zone. A periprostatic nerve block was then performed with 1% lidocaine without epinephrine. A total of 12 laterally directed biopsies were taken from the prostate. The biopsies were labeled and sent individually. The patient tolerated this procedure well with no complications.
== END ==
PROVIDERS: PCP Family Medicine; Visit Provider Nurse Practitioner Gerontology
DX: R36.1 Hematospermia (principal); R97.20 Elevated prostate specific antigen [PSA]; N42.89 Other specified disorders of prostate
CPT/HCPCS: 55700; 88305; 76942

== ENCOUNTER → 2022-08-23 03:40 | Outpatient (CLI) | payer BC, SELFPAY ==
--- NOTE | 2022-08-23 07:45 | DI.CT_ITS ---
Exam(s) CT ABDOMEN PELVIS WO/W EXAM: CT ABDOMEN PELVIS WO/W CLINICAL HISTORY: gross painless hematuria,r31.9 TECHNIQUE: Imaging Protocol: Axial computed tomography images with coronal and sagittal reformatted images were created and reviewed CONTRAST MATERIAL: Intravenous: Omnipaque 350 Contrast volume:100 mL Oral: No COMPARISON: No exams were available for comparison FINDINGS: ABDOMEN: Lung Bases: Normal where visualized. There is a small hiatal hernia. Liver: Normal density. There is a tiny hypodensity in the right lobe of the liver. It is too small f or further characterization, but likely reflects a small cyst. No suspicious masses are present. Portal, Superior Mesenteric, and Splenic Veins: Unremarkable. Gallbladder and Biliary Tract: No radiodense calculus or dilation. Pancreas: Normal density, no abnormal calcifications or inflammatory process. Spleen: Normal. Adrenals: No masses seen. Kidneys: Normal size, contour and axis. No radiodense stones or obstructive uropathy. No masses seen. Abdominal Aorta: Abdominal portion non-dilated. Mild atherosclerosis. Bowel: No obstruction or bowel wall thickening. Appendix is unremarkable. There is diverticulosis in the colon but no evidence of acute diverticulitis. Peritoneal Cavity: No ascites, collection or mesenteric inflammatory response. No free air. Lymph Nodes: Within normal limits. Bones: Within normal limits for the patient's age. Soft Tissues: There is a small fat containing left inguinal hernia. PELVIS: Bladder: Symmetric distention, no gross wall thickening. Reproductive Organs: There is marked enlargement of the prostate gland. It impinges upon the base of the urinary bladder. Lymph Nodes: Within normal limits. Bones: Within normal limits for the patient's age. IMPRESSION: 1. No evidence of nephrolithiasis or hydronephrosis. 2. Marked prostatic enlargement impinging on the base of the urinary bladder. 3. Colonic diverticulosis, but no evidence of acute diverticulitis. RADIATION DOSE DELIVERED: 3,570.97mGy.cm Total DLP 3,570.97mGy.cm Total DLP DATA REPOSITORY: All CT scans at this facility are submitted to the National Radiology Data Registry (NRDR) Dose Index Registry (DIR) with the [employer] (ACR). RADIATION OPTIMIZATION: All CT scans at this facility use at least one of these dose optimization te chniques: automated exposure control; mA and/or kV adjustment per patient size (includes targeted exa ms where dose is matched to clinical indication); or iterative reconstruction.
[2022-08-23] MEDS: Omnipaque 350 MG/ML 100 ML BTL IJ (11:45)
== END ==
PROVIDERS: PCP Family Medicine; Visit Provider Nurse Practitioner Gerontology
DX: R31.9 Hematuria, unspecified (principal); K57.30 Diverticulosis of large intestine without perforation or abscess without bleeding
CPT/HCPCS: 74178; J3490

== ENCOUNTER 2022-11-18 10:04 | Emergency (ER) | payer BC, SELFPAY ==
[2022-11-18 10:08] VITALS: BP 133/83; PULSE 62; RESP 16; TEMP 36.8; O2SAT 98
[2022-11-18] MEDS: Lidocaine 2% Jelly 11 ML SYR UR (10:54)
--- NOTE | 2022-11-18 11:02 | NUR.NOTE ---
Nursing Note:16F elizondo catheter placed by Surjit Stover RN. Urine output with catheter 1200cc.
--- NOTE | 2022-11-18 11:04 | W.ED.GENAD ---
Discharge Plan Disposition Patient Disposition: Home Condition: Stable Discharge Details Clinical Impression: Acute urinary retention, Benign prostatic hyperplasia Primary Care Provider: Dottie Oliva ED Provider: Lyndsay Adams Home Meds and New Rx's Prescriptions: New tamsulosin [Flomax] 0.4 mg capsule 0.4 mg PO QHS Qty: 10 0RF Discharge Instructions Instructions: Urinary Retention in Men (ED) Additional Instructions: Take the Flomax as prescribed Stay from alcohol Follow-up with the urologist for an appointment in the next 1 to 2 weeks Keep the Ga catheter in place Transition from leg bag when you wake up and place a larger bag on when you are sleeping, do not try to ambulate with a larger bag in place Return should he have fever, chills, or with any new or worsening complaints Referrals: Alcides Isabel MD [ [facility] STAFF PHYSICIAN] - 5 days Discharge Data Discharge Date/Time-TO BE ENTERED AT DEPARTURE: 11/18/22 11:40 Medical Decision Making This 52-year-old gentleman with history of prostatic hypertrophy presents with report of difficulty urinating difficulty with bowel movements since Saturday. Bladder scan was initiated Patient had 1600 cc of urine in his bladder, Ga catheter was placed Pain has resolved Placed on Flomax Urine sent for urinalysis Return precautions reviewed and patient expressed understanding Medical Records Medical records reviewed: Yes I reviewed the patient's medical records. Lab Data Lab results reviewed: Yes I reviewed the patient's lab results. ECG Data Prior ECG tracings: available for review HPI General Date/Time Provider Initiated Documentation: 11/18/22 10:05. HPI Narrative: This 52-year-old gentleman with history of sleep apnea presents with report of lower abdominal pain since Saturday. No BM since Saturday. States has had some intermittent difficulty urinating. Denies history of similar symptoms in the past. States he had a couple of drinks on Saturday and is wondering if this precipitated his symptoms. Related Data Home Medications Medication Instructions Recorded Confirmed tamsulosin 0.4 mg capsule (Flomax) 0.4 mg PO QHS #10 caps 11/18/22 Previous Rx's Medication Instructions Recorded tamsulosin 0.4 mg capsule (Flomax) 0.4 mg PO QHS #10 caps 11/18/22 Allergies Allergy/AdvReac Type Severity Reaction Status Date / Time No Known Allergies Allergy Verified 11/18/22 10:15 General Stated Complaint: Abd Prob EVER: 3 Review of Systems All systems reviewed & are unremarkable except as noted in HPI and below PFSH All Active Problems (Updated 11/18/22 @ 11:08 by SARIKA Messer) Acute urinary retention (Acute) Benign prostatic hyperplasia (Chronic) Hematospermia (Acute) Elevated PSA (Acute) Otomycosis of right ear (Acute) Conductive hearing loss, external ear (Acute) Impacted cerumen, bilateral (Acute) Flu-like symptoms (Acute) Encounter for colorectal cancer screening (Acute) Trochanteric bursitis, right hip (Acute 10/26/16) Trochanteric bursitis of left hip (Acute 10/26/16) Strain of lumbar region (Acute 03/26/16) 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 Reviewed the procedure with Melissakamila, and discussed the risks of the procedure with Melissakamila. All his questions were answered to his satisfaction. Medical History Frequent headaches MAXI (obstructive sleep apnea) Surgical History Biopsy, Soft Tissue (09/25/17) right scapula, lichenoid keratosis Excision, Lipoma (09/25/17) left arm H/O colonoscopy dr virgen, tubular adenoma, repeat 5 years History of excision of lesion (07/29/18) lipoma, left arm by Dr Virgen on 07/29/18 History of placement of ear tubes Repair of umbilical hernia Rotator Cuff Repair Family History Other Adopted Social History Smoking/Tobacco Use Status: Never Smoking risk assessment performed?: Yes Alcohol Intake: never Drug use: Never Substance use type: does not use Adopted: Yes Household members: spouse and children What is your relationship status?: Panel score (0-1 are the most socially isolated patients): 1 Do you feel safe at home: Yes Do you feel safe in your relationship?: Yes Exam Const General: cooperative, comfortable and no acute distress Orientation: alert and oriented x3 Eyes Pupils: PERRL Resp Effort & Inspection: normal respiratory effort Auscultation: clear to auscultation bilaterally Cardio Rate: regular rate Rhythm: regular rhythm GI Inspection: normal to inspection Skin General skin exam: no rashes or lesions noted Neuro General: patient alert and patient oriented x3 Course Vital Signs Vital signs: Vital Signs Temperature 36.8 C 11/18/22 10:08 Pulse 62 11/18/22 10:08 Respiratory Rate 16 11/18/22 10:08 Blood Pressure 133/83 11/18/22 10:08 Pulse Oximetry 98 11/18/22 10:08 Temperature 36.8 C 11/18/22 10:08 Pulse 62 11/18/22 10:08 Respiratory Rate 16 11/18/22 10:08 Respiratory Effort 11/18/22 10:13 Blood Pressure 133/83 11/18/22 10:08 Blood Pressure Position Standing 11/18/22 10:08 Pulse Oximetry 98 11/18/22 10:08 Oxygen Delivery Method Room Air 11/18/22 10:08 Oxygen Flow Rate 0 11/18/22 10:08 Pain Level 6 11/18/22 10:08 PAWSS Have you Been Recently Intoxicated or Drunk Within the Last 30 days?: No Have you Ever Experienced Previous Episodes of Alcohol Withdrawal?: No Have you ever Experienced Withdrawal Seizures?: No Have you ever Experienced Delirium Tremens(DT)s?: No Have you ever undergone Alcohol Rehabilitation Treatment (i.e, inpt ot outpatient treatment programs)?: No Have you ever Experienced Blackouts?: No Have you ever Combined Alcohol with other Downers within the last 90 days?: No Have you ever Combined Alcohol with any other Substance of Abuse during the last 90 days?: No Positive Blood Alcohol level on Presentation? [PCS.BAL]: No Evidence of Increased Autonomic Activity (i.e. HR>120, tremor, sweating, agitation, nausea)?: No Result: 0
--- NOTE | 2022-11-18 11:09 | NUR.NOTE ---
Nursing Note: Referral faxed to [facility] Urology for urinary retention, elizondo placed appt at their discretion.
[2022-11-18 11:23] LABS: Bilirubin Negative (Negative); Blood Large (Negative); Clarity Sl Cloudy (Clear); Glucose Negative (Negative); Ketones Negative (Negative); Leukocyte Esterase Negative (Negative); Nitrite Negative (Negative); Specific Gravity >= 1.030 (1.005-1.025); Urobilinogen 0.2 EU/dL (Up TO 0.2)
[2022-11-18 11:29] LABS: Bacteria Rare HPF (Negative); C & S Indicated? No; Casts Negative LPF (Negative); Crystals Negative HPF (Negative); Epithelial Cells Rare HPF (Negative); Mucus Trace (Negative); RBC 20-50 HPF (0-2); WBC 0-2 HPF (0-5)
[2022-11-18 11:40] VITALS: BP 127/82; PULSE 64; RESP 16; O2SAT 99
== END 2022-11-18 11:40 | disposition home or self-care (01) ==
PROVIDERS: Emergency Provider Physician Assistant; PCP Family Medicine
DX: R33.8 Other retention of urine (principal); N40.1 Benign prostatic hyperplasia with lower urinary tract symptoms
CPT/HCPCS: 51702; 99283; 81003; 81015

== ENCOUNTER 2023-02-27 03:28 | Outpatient (CLI) | payer BC, SELFPAY ==
[2023-02-27 22:48] LABS: PSA, Diagnostic 6.3 ng/mL (<=3.5)
== END 2023-02-27 03:29 | disposition home or self-care (01) ==
LOC: LBO 03:28
PROVIDERS: PCP Family Medicine; Visit Provider Nurse Practitioner Gerontology
DX: R97.20 Elevated prostate specific antigen [PSA] (principal)
CPT/HCPCS: 36415; 84153

== ENCOUNTER 2023-09-20 01:55 | Outpatient (CLI) | payer BC, SELFPAY ==
[2023-09-20 20:41] LABS: PSA, Screening 7.8 ng/mL (<=3.5)
== END 2023-09-20 01:56 | disposition home or self-care (01) ==
LOC: LBO 01:55
PROVIDERS: PCP Family Medicine; Visit Provider Nurse Practitioner Gerontology
DX: R39.9 Unspecified symptoms and signs involving the genitourinary system (principal); Z12.5 Encounter for screening for malignant neoplasm of prostate
CPT/HCPCS: 36415; 84153

== ENCOUNTER 2024-02-20 19:10 | Outpatient (REF) | payer BC, SELFPAY ==
[2024-02-20 15:40] LABS: Abs Immature Grans 0.17 10^3/uL (0.0-0.06); Absolute Basophil Count 0.08 10^3/uL (0.0-0.2); Absolute Eosinophil Count 0.23 10^3/uL (0.0-0.7); Absolute Lymphocyte Count 1.49 10^3/uL (1.2-3.4); Absolute Monocyte Count 1.07 10^3/uL (0.1-0.8); Absolute Neutrophil Count 4.65 10^3/uL (1.2-6.7); HCT 51.7 % (40.0-50.0); HGB 16.6 g/dL (13.5-17.5); Immature Grans % 2.2; Lymphocytes % 19.4; MCHC 32.1 % (32.0-36.0); MCV 81 fL (80-95); MPV 10.2 fL (8.0-11.0); Monocytes % 13.9; Neutrophils % 60.5; Platelet Count 332 10^3/uL (130-400); RBC 6.39 10^6/uL (4.36-5.78); RDW 15.8 % (11.8-14.1); RDW-SD 45.2 fL; WBC 7.69 10^3/uL (4.4-10.8)
[2024-02-20 15:50] LABS: ESR 12 mm/hr (0-20)
[2024-02-20 15:59] LABS: Anion Gap 5.8 mmol/L (3-11); BUN 21 mg/dL (7-18); CO2 24.2 mmol/L (21.0-32.0); CREATININE 0.9 mg/dL (0.70-1.30); Calcium 8.3 mg/dL (8.5-10.1); Chloride 106 mmol/L (98-107); Estimated GFR 100.86 (mL/min/1.73m2); Glucose 76 mg/dL (74-106); Potassium 4.5 mmol/L (3.5-5.1); Sodium 136 mmol/L (136-145)
[2024-02-20 16:39] LABS: Diff Comment RBC Morph Reviewed; RBC Morphology Normal
== END 2024-02-20 19:11 | disposition home or self-care (01) ==
LOC: NCHCN 19:10
PROVIDERS: PCP Family Medicine; Referring Provider Family Medicine; Visit Provider Family Medicine
DX: H53.8 Other visual disturbances (principal)
CPT/HCPCS: 80048; 85652; 85025

== ENCOUNTER 2024-03-19 05:49 | Outpatient (CLI) | payer BC, SELFPAY ==
[2024-03-19 22:31] LABS: PSA, Screening 10.5 ng/mL (<=3.5)
== END 2024-03-19 05:50 | disposition home or self-care (01) ==
LOC: LBO 05:49
PROVIDERS: PCP Family Medicine; Visit Provider Nurse Practitioner Gerontology
DX: R39.9 Unspecified symptoms and signs involving the genitourinary system (principal); R97.20 Elevated prostate specific antigen [PSA]
CPT/HCPCS: 36415; 84153

== ENCOUNTER 2024-03-31 12:42 | Outpatient (REF) | payer BC, SELFPAY ==
[2024-03-31 15:08] LABS: ALT 34 U/L (16-63); AST 28 U/L (15-37)
== END 2024-03-31 12:43 | disposition home or self-care (01) ==
LOC: NCHCN 12:42
PROVIDERS: PCP Family Medicine; Visit Provider Nurse Practitioner Family
DX: G45.3 Amaurosis fugax (principal)
CPT/HCPCS: 84450; 84460

== ENCOUNTER 2024-05-05 18:58 | Outpatient (REF) | payer BC, SELFPAY ==
[2024-05-05 16:35] LABS: LDL CHOLESTEROL 57 mg/dL (<100)
== END 2024-05-05 18:59 | disposition home or self-care (01) ==
LOC: NCHCN 18:58
PROVIDERS: PCP Family Medicine; Visit Provider Family Medicine
DX: G45.3 Amaurosis fugax (principal)
CPT/HCPCS: 83721

== ENCOUNTER 2024-12-10 01:12 | Outpatient (CLI) | payer BC, SELFPAY ==
[2024-12-10 19:02] LABS: PSA, Diagnostic 6.8 ng/mL (<=3.5)
== END 2024-12-10 01:13 | disposition home or self-care (01) ==
LOC: LBO 01:12
PROVIDERS: PCP Family Medicine; Visit Provider Nurse Practitioner Gerontology
DX: R97.20 Elevated prostate specific antigen [PSA] (principal)
CPT/HCPCS: 36415; 84153

== ENCOUNTER 2024-12-23 03:07 | Outpatient (CLI) | payer BC, SELFPAY ==
--- NOTE | 2024-12-23 | DI.RAD_ITS ---
Exam(s) XR LUMBAR SPINE COMPLETE EXAM: XR LUMBAR SPINE COMPLETE CLINICAL HISTORY: ACUTE LOW BACK PAIN,M54.50. TECHNIQUE: 2D digital imaging was performed of the lumbar spine. Five images were obtained. AP, la teral, right oblique, left oblique and L5-S1 spot views were obtained. COMPARISON: CT CT ABDOMEN PELVIS WO/W from 08/23/2022 FINDINGS: BONES: No fracture or destructive lesion. There are endplate osteophytes at several levels of the lum bar spine. Mild degenerative changes of the facets are seen at L5-S1. DISKS: There is disc space narrowing at T12-L1 and L1-L2. There is again seen a limbus vertebra at L 3. ALIGNMENT: Lumbar spinal alignment is within normal limits. No spondylolysis or spondylolisthesis. SOFT TISSUE: Normal. IMPRESSION: Mild degenerative changes seen in the lumbar spine. No acute fracture or subluxation. DATA REPOSITORY: RADIATION DOSE DELIVERED:
== END 2024-12-23 03:27 ==
LOC: DI 03:08
PROVIDERS: PCP Family Medicine; Visit Provider Family Medicine
DX: M51.360 Other intervertebral disc degeneration, lumbar region with discogenic back pain only (principal)
CPT/HCPCS: 72110